=== PATIENT | female | born 1980 | race Caucasian/White ===

== ENCOUNTER 2023-08-11 09:31 | Emergency (ER) | payer OTHER, SELFPAY ==
--- NOTE | 2023-08-11 | ECG_ITS ---
Test Reason : dizziness Blood Pressure : / mmHG Vent. Rate : 073 BPM Atrial Rate : 073 BPM P-R Int : 154 ms QRS Dur : 086 ms QT Int : 396 ms P-R-T Axes : 050 -07 067 degrees QTc Int : 436 ms Normal sinus rhythm Cannot rule out Anterior infarct , age undetermined Abnormal ECG No previous ECGs available Referred By: Generic ED Physician Electronically Signed By:Que Castro
--- NOTE | ~2023-08-11 | MR_ITS ---
EXAMINATION: MR BRAIN WITHOUT CONTRAST CLINICAL INFORMATION: Diplopia. Falls. Rule out posterior circulation stroke. COMPARISON: None. TECHNIQUE: Multiplanar, multisequence imaging of the brain was performed without contrast. FINDINGS: No diffusion abnormalities are identified to suggest an acute or subacute infarct. The ventricles are normal in size. No mass effect or midline shift is seen. No brain parenchymal signal abnormality is noted. No extra-axial fluid collections are seen. The brainstem and cerebellum are normal. The gradient refocused acquisition is normal. The craniovertebral junction, marrow signal, and midline structures are normal. The major intracranial flow voids at the level of the [place] are preserved. The dural venous sinus flow voids are maintained. The mastoid air cells and paranasal sinuses are well aerated. MR/MR head/brain wo con IMPRESSION: No acute intracranial process. Normal MRI of the brain.
[2023-08-11 10:26] VITALS: BP 161/101; PULSE 75; RESP 18; TEMP 36.7; O2SAT 99; BMI 37.7
[2023-08-11 10:45] LABS: MANUAL DIFF FLAG NO
[2023-08-11 10:55] LABS: Basophils Percent Auto 0.4 % (0-2); Eosinophils Absolute Auto 0.1 X10*3/uL (0.0-0.4); Eosinophils Percent Auto 0.7 % (0-4); Hematocrit 41.9 % (37.0-47.0); Imm Gran Abs Auto 0.02 X10*3/uL (0.00-0.03); Imm Gran Pct Auto 0.2 % (0.0-0.4); Lymphocytes Absolute Auto 3.3 X10*3/uL (1.2-4.9); Lymphocytes Percent Auto 39.8 % (20-40); Mean Corpuscular HGB Conc 33.4 g/dl (31.0-35.0); Mean Corpuscular Hemoglobin 31.2 pg (27.0-33.0); Mean Corpuscular Volume 93.3 fL (80.0-98.0); Mean Platelet Volume 8.5 fL (9.4-12.3); Monocytes Absolute Auto 0.6 X10*3/uL (0.1-1.2); Monocytes Percent Auto 6.7 % (2-11); Neutrophils Absolute Auto 4.3 x10*3/uL (2.0-8.3); Neutrophils Percent Auto 52.2 % (45-73); Platelet Count 362 X10*3/uL (160-400); Red Blood Count 4.49 X10*6/uL (4.20-5.50); Red Cell Distribution Width 12.9 % (11.0-16.0); White Blood Count 8.2 X10*3/uL (4.8-10.8)
[2023-08-11 11:17] LABS: Troponin-I High Sensitivity < 2.7 ng/L (<3.5-17.0)
[2023-08-11 11:20] LABS: Anion Gap 12 (12-20); Blood Urea Nitrogen 18 mg/dL (9-16); Calcium 9.4 mg/dL (8.4-10.2); Carbon Dioxide 27 mmol/L (22-29); Chloride 103 mmol/L (96-108); Creatinine Clr Calc Pharmacy 132.2; Estimated Glomerular Filt Rate > 60; Glucose Random 100 mg/dL (60-115); Potassium 4.1 mmol/L (3.3-5.1); Sodium 138 mmol/L (135-145)
--- NOTE | 2023-08-11 12:43 | ED.DIZZY ---
HPI - Dizziness General Chief Complaint: Dizziness Stated Complaint: Lightheaded Dizzy Time Seen by Provider: 08/11/23 12:09 Source: patient Mode of arrival: EMS Limitations: no limitations History of Present Illness HPI Narrative: 43-year-old female with past history significant for bipolar disorder patient is on Depakote Trileptal lisinopril Wellbutrin Prozac she denies any recent changes in medications patient denies any cough or fever. Patient states they were at work today when he started to feel lightheaded currently patient states it still feel dizzy. Patient states they did eat breakfast this morning not since has never had this problem before there has been send family in their biological father at 31. MD elicited complaint: dizziness Related Data Previous Rx's Medication Instructions Recorded cefuroxime axetil 500 mg tablet 500 mg PO BID UTI 7 days #14 tabs 08/11/23 Allergies Allergy/AdvReac Type Severity Reaction Status Date / Time ondansetron [From Zofran] AdvReac Vomiting Verified 08/11/23 14:18 Review of Systems Review of Systems: Review of systems: General: Dizziness Patient denies any fever chills recent illness or falls Musculoskeletal: Denies back pain or body aches or other injuries HEENT: denies headache, runny nose, ear pain Respiratory: denies shortness of breath, cough Cardiovascular: no chest pain or palpitations : denies dysuria, frequency Abdomen: no nausea vomiting denies abdominal pain Extremities: no swelling, no pain Skin: no diaphoresis Yes all other systems are reviewed and are negative [facility] Social History Social History Advance Directives: No Physical Exam Vital Signs: Vital Signs: Last Vital Signs Temp 97 F 08/11/23 14:00 Pulse 76 08/11/23 14:00 Resp 18 08/11/23 14:00 BP 147/87 H 08/11/23 14:00 Pulse Ox 98 08/11/23 14:00 O2 Del Method Room Air 08/11/23 14:00 BMI result Body Mass Index 37.7 Neurological exam: CN II- XII tested. Patient is alert and oriented to person place and time. Patient has no dysphagia or dysarthia, denies good vision in all four vision calles no nystagmus on exam, good strength to upper and lower extremities with normal reflexes to brachioradialis, wrist, patella and achilles. I did try a Somerset-Hallpike and René maneuver patient's symptoms were reproducible and did resolve Negative romberg, good finger to nose and heel to parish. General: Well-appearing well-nourished in no signs of distress HEENT: Normocephalic atraumatic Neck: No signs of JVD, no masses no tenderness or lymphadenopathy Cardiovascular: Regular rate and rhythm Respiratory: Clear to auscultation bilaterally Abdomen: Soft nontender no masses Extremities: Normal pedal pulses no signs of edema Skin: Dry warm no rashes Back: No tenderness full ROM Course Course Course Narrative: Patient reassessed multiple times initially with her at the bedside and the workup was increased for acute stroke and consultation with Dr. Alicea ; I did give the patient some meclizine as well as doing Somerset-Hallpike maneuver. I did add on valproic acid as well as ammonia level ammonia level is slightly elevated but still within normal limits patient's urine did come back positive I did give the patient Rocephin for UTI. 1656 patient negative MRI this could be related to altered medications on her bladder infection but do not have an obvious reason for symptoms I do think it is worthwhile to follow up with her doctor patient is okay with this and will follow up. Medications Administered Discontinued Medications Generic Name Dose Route Start Last Admin Trade Name Freq PRN Reason Stop Dose Admin Aspirin 324 mg 08/11/23 14:11 08/11/23 14:17 Aspirin 81 Mg Tab.Chew PO 08/11/23 14:12 324 mg ONCE ONE Administration Sodium Chloride 1,000 mls @ 999 mls/hr 08/11/23 14:15 08/11/23 15:39 Ns IV 08/11/23 15:15 Infused .Q1H1M DANIEL Infusion Ceftriaxone Sodium 1 gm/ 50 mls @ 100 mls/hr 08/11/23 15:28 08/11/23 16:12 Sodium Chloride IV 08/11/23 15:57 Infused ONCE ONE Infusion Meclizine HCl 25 mg 08/11/23 14:08 08/11/23 14:17 Meclizine Hcl 25 Mg Tablet PO 08/11/23 14:09 25 mg ONCE ONE Administration Medical Decision Making Medical Decision Making MDM Narrative: I will give the patient meclizine fluids and reassess. Differential Diagnosis Differential Diagnoses: The differential diagnosis associated with the presentation includes Posterior circulation stroke anemia electrolyte abnormality BPPV patient is on Depakote this could be elevated ammonia level elevated Depakote level I will send levels Admission/Observation Consideration of admission/observation: Escalation of care including admission/observation considered Consult Healthcare Provider Management of the patient was discussed with: Talent Development Analyst I will discuss the case with Neurology Dr. Alicae who agreed MRI of the brain was warranted. Lab Data MDM Lab Attestation statement: I reviewed the patient's lab results. 08/11/23 10:41 08/11/23 10:41 Labs: Lab Results 08/11/23 08/11/23 08/11/23 Range/Units 10:41 14:34 15:08 WBC 8.2 (4.8-10.8) X10*3/uL RBC 4.49 (4.20-5.50) X10*6/uL Hgb 14.0 (12.0-16.0) g/dl Hct 41.9 (37.0-47.0) % MCV 93.3 (80.0-98.0) fL MCH 31.2 (27.0-33.0) pg MCHC 33.4 (31.0-35.0) g/dl RDW 12.9 (11.0-16.0) % Plt Count 362 (160-400) X10*3/uL MPV 8.5 L (9.4-12.3) fL Immature Gran % (Auto) 0.2 (0.0-0.4) % Neut % (Auto) 52.2 (45-73) % Lymph % (Auto) 39.8 (20-40) % [place] % (Auto) 6.7 (2-11) % Eos % (Auto) 0.7 (0-4) % Baso % (Auto) 0.4 (0-2) % Lymph # (Auto) 3.3 (1.2-4.9) X10*3/uL [place] # (Auto) 0.6 (0.1-1.2) X10*3/uL Eos # (Auto) 0.1 (0.0-0.4) X10*3/uL Baso # (Auto) 0.0 (0.0-0.2) X10*3/uL Abs Immat Gran (auto) 0.02 (0.00-0.03) X10*3/uL Absolute Neuts (auto) 4.3 (2.0-8.3) x10*3/uL Absolute Nucleated RBC 0.000 (0.0-0.012) X10*3/uL Nucleated RBC % (auto) 0.0 (0.0-0.2) /100WBC Sodium 138 (135-145) mmol/L Potassium 4.1 (3.3-5.1) mmol/L Chloride 103 (96-108) mmol/L Carbon Dioxide 27 (22-29) mmol/L Anion Gap 12 (12-20) BUN 18 H (9-16) mg/dL Creatinine 0.76 (0.5-1.4) mg/dL Estim Creat Clear Calc 132.2 Estimated GFR > 60 Random Glucose 100 (60-115) mg/dL Calcium 9.4 (8.4-10.2) mg/dL Ammonia 43 (13-55) umol/L Troponin I High Sens < 2.7 (<3.5-17.0) ng/L Urine Color Urine Appearance Urine pH (5.0-9.0) Ur Specific Drew (1.005-1.025) Urine Protein (Neg-Trace) mg/dL Urine Glucose (UA) (Negative) mg/dL Urine Ketones (Negative) mg/dL Urine Blood (Negative) Urine Nitrite (Negative) Ur Leukocyte Esterase (Negative) Urine RBC (0-2) /HPF Urine WBC (0-5) /HPF Ur Squamous Epith Cells (0-2) /HPF Urine Bacteria (None Seen) Hyaline Casts (0-2) /LPF Valproic Acid 77.6 (50.0-100.0) mcg/mL 08/11/23 Range/Units 15:11 WBC (4.8-10.8) X10*3/uL RBC (4.20-5.50) X10*6/uL Hgb (12.0-16.0) g/dl Hct (37.0-47.0) % MCV (80.0-98.0) fL MCH (27.0-33.0) pg MCHC (31.0-35.0) g/dl RDW (11.0-16.0) % Plt Count (160-400) X10*3/uL MPV (9.4-12.3) fL Immature Gran % (Auto) (0.0-0.4) % Neut % (Auto) (45-73) % Lymph % (Auto) (20-40) % [place] % (Auto) (2-11) % Eos % (Auto) (0-4) % Baso % (Auto) (0-2) % Lymph # (Auto) (1.2-4.9) X10*3/uL [place] # (Auto) (0.1-1.2) X10*3/uL Eos # (Auto) (0.0-0.4) X10*3/uL Baso # (Auto) (0.0-0.2) X10*3/uL Abs Immat Gran (auto) (0.00-0.03) X10*3/uL Absolute Neuts (auto) (2.0-8.3) x10*3/uL Absolute Nucleated RBC (0.0-0.012) X10*3/uL Nucleated RBC % (auto) (0.0-0.2) /100WBC Sodium (135-145) mmol/L Potassium (3.3-5.1) mmol/L Chloride (96-108) mmol/L Carbon Dioxide (22-29) mmol/L Anion Gap (12-20) BUN (9-16) mg/dL Creatinine (0.5-1.4) mg/dL Estim Creat Clear Calc Estimated GFR Random Glucose (60-115) mg/dL Calcium (8.4-10.2) mg/dL Ammonia (13-55) umol/L Troponin I High Sens (<3.5-17.0) ng/L Urine Color Yellow Urine Appearance Clear Urine pH 8.5 (5.0-9.0) Ur Specific Drew 1.015 (1.005-1.025) Urine Protein Negative (Neg-Trace) mg/dL Urine Glucose (UA) Negative (Negative) mg/dL Urine Ketones Negative (Negative) mg/dL Urine Blood Negative (Negative) Urine Nitrite Negative (Negative) Ur Leukocyte Esterase Trace H (Negative) Urine RBC 0-2 (0-2) /HPF Urine WBC 21-50 H (0-5) /HPF Ur Squamous Epith Cells 3-5 (0-2) /HPF Urine Bacteria 3+ (None Seen) Hyaline Casts 0-2 (0-2) /LPF Valproic Acid (50.0-100.0) mcg/mL Independent Interpretation I performed an independent interpretation of an: EKG and Plain X-Ray Interpretation: EKG rate 63 normal sinus rhythm normal intervals no signs of ischemia patient has normal intervals there is no short WA interval or signs of [id number] there is no right bundle-branch pattern in V1 V2 or any signs concerning for Brugada syndrome there is no epsilon wave there is no signs of LVH and QT is not prolonged Radiology Impression Discussion of test interpretation with radiology: I discussed test interpretation with the radiologist Independent Historian Clinical information obtained from an independent historian. History obtained from or confirmed by: Spouse and EMS is now at the bedside she states the dizziness has been going on for some time she has had trouble walking upstairs she has double vision lightheaded confusion has been dropping things and falling upstairs for weeks it comes and goes is more insidious. External Record Review Patient has never been reported this no previous records to review Discharge Plan Discharge Clinical Impression: Vertigo, Urinary tract infection Patient Disposition: Home, Self-Care Instructions: Urinary Tract Infection in Women (DC), Vertigo (DC), Near Syncope (ED) Additional Instructions: You were seen today in the emergency department for I was passing out and having recurrent symptoms of double vision dizziness and tripping. You had a complete stroke workup including MRI labs and x-rays which were all unremarkable. I am going to send home with antibiotics as well as meclizine please call follow up with her doctor. Prescriptions: New cefuroxime axetil 500 mg tablet 500 mg PO BID 7 Days Qty: 14 0RF
[2023-08-11 14:00] VITALS: BP 147/87; PULSE 76; RESP 18; TEMP 36.1; O2SAT 98
--- NOTE | 2023-08-11 14:08 | PC.NURSE ---
md almanza notified pt requesting iv fluids.
[2023-08-11] MEDS: Meclizine HCl 25 MG TABLET PO (14:17)
[2023-08-11] MEDS: Aspirin 81 MG TAB.CHEW 324 MG PO (14:17)
--- NOTE | 2023-08-11 14:30 | PC.NURSE ---
followed up w REPAIR TECHNICIAN therapist and MD lamanza in [facility]- notified passed RN swallow juan manuel
[2023-08-11] MEDS: 0.9 % Sodium Chloride 1,000 ML 999 ML IV (14:37)
[2023-08-11 14:50] LABS: Ammonia 43 umol/L (13-55)
[2023-08-11 15:21] LABS: Appearance Urine Clear; Color Urine Yellow; Glucose Urine UA Negative (Negative); Leukocyte Esterase Urine Trace (Negative); Nitrite Urine Negative (Negative); PH 8.5 (5.0-9.0); Specific Gravity - Urine 1.015 (1.005-1.025); UMIC TRIGGER UACC YES; Urine Blood Negative (Negative); Urine Ketones Negative (Negative); Urine Protein Negative (Neg-Trace)
[2023-08-11 15:23] LABS: Bacteria Urine 3+ (None Seen); Hyaline Casts Urine 0-2 /LPF (0-2); RBC Urine 0-2 /HPF (0-2); UACC Culture Trigger YES; WBC Urine 21-50 /HPF (0-5)
[2023-08-11 15:32] LABS: Valproate 77.6 mcg/mL (50.0-100.0)
[2023-08-11] MEDS: cefTRIAXone sodium 1 GM in 0.9 % Sodium Chloride 50 ML IV (15:39)
--- NOTE | 2023-08-11 15:50 | MHC.SLORD ---
Addendum entered and electronically signed by JEFFREY Kline 08/11/23 15:52: If future concerns arise, please re-refer for TRAVELING CLERK consult. Original Note: Speech Language Pathology Order Status: TRAVELING CLERK consult received. Per MD, order was meant for RN swallow screen and not TRAVELING CLERK consult. Per RN, patient passed RN swallow screen and there is no concerns. TRAVELING CLERK consult to be cancelled.
[2023-08-11 17:50] VITALS: BP 132/63; PULSE 73; RESP 18; TEMP -17.7; TEMP 0; O2SAT 99
== END 2023-08-11 17:52 | disposition home or self-care (01) ==
PROVIDERS: Emergency Provider Student in an Organized Health Care Education/Training Program; PCP Internal Medicine
DX: N39.0 Urinary tract infection, site not specified (principal); R42 Dizziness and giddiness; H53.2 Diplopia; Z91.81 History of falling
CPT/HCPCS: 36415; 70551; 80048; 80164; 81001; 82140; 84484; 85025; 87086; 93005; 96361; 96365; 99284; 99285; J0696

== ENCOUNTER → 2023-08-11 10:34 | Outpatient (BNV) | payer OTHER, SELFPAY | PROVIDERS: Emergency Provider Student in an Organized Health Care Education/Training Program; PCP Internal Medicine; Visit Provider Internal Medicine Cardiovascular Disease | DX: R94.31 Abnormal electrocardiogram [ECG] [EKG] (principal) | CPT/HCPCS: 93010 ==

== ENCOUNTER 2023-10-29 12:44 | Emergency (ER) | payer OTHER, SELFPAY ==
--- NOTE | ~2023-10-29 | XR_ITS ---
EXAMINATION: XR CHEST CLINICAL INFORMATION: Chest pain COMPARISON: None available. TECHNIQUE: 2 views of the chest were obtained. FINDINGS: No significant abnormality is noted involving the heart, lungs, mediastinum, bony thorax or soft tissues. XR/XR chest 2V IMPRESSION: Unremarkable examination.
--- NOTE | 2023-10-29 12:50 | ECG_ITS ---
Test Reason : CHEST PAIN Blood Pressure : / mmHG Vent. Rate : 070 BPM Atrial Rate : 070 BPM P-R Int : 146 ms QRS Dur : 086 ms QT Int : 410 ms P-R-T Axes : 031 -02 -05 degrees QTc Int : 442 ms Normal sinus rhythm Nonspecific ST abnormality Abnormal ECG When compared with ECG of 11-AUG-2023 10:34, Nonspecific T wave abnormality, improved in Lateral leads Referred By: Generic ED Physician Electronically Signed By:FABY SIMON
[2023-10-29 12:59] VITALS: BP 160/92; PULSE 87; RESP 16; TEMP 36.6; O2SAT 96; BMI 39.1
--- NOTE | 2023-10-29 12:59 | ED_ITS ---
HPI - Chest Pain General Chief Complaint: Dizziness Stated Complaint: Chest pain, dizziness Time Seen by Provider: 10/29/23 16:03 Source: patient Mode of arrival: ambulatory Limitations: no limitations History of Present Illness ED Provider: Anika Morley PA-C HPI narrative: Patient is a 43 year old assigned female at with no reported medical history presenting to the emergency department today with right sided chest pain. Patient states that over the last few hours she has had right sided chest pain, worse with deep breaths, that radiates into her right arm. Patient denies any dizziness, lightheadedness, abdominal pain, nausea, vomiting, fever, chills, blurry vision, double vision, loss of vision, difficulty breathing, shortness of breath, back pain, night sweats, pain with urination, increased urinary frequency, increased urinary urgency, blood in her urine or stool, syncope or a near syncopal episode, recent trauma or falls, bowel incontinence, bladder incontinence, or any other complaints at this time. MD complaint: chest pain Pain location: right chest Related Data Previous Rx's ?Medication ?Instructions ?Recorded cefuroxime axetil 500 mg tablet 500 mg PO BID UTI 7 days #14 tabs 08/11/23 Allergies Allergy/AdvReac Type Severity Reaction Status Date / Time ondansetron [From Zofran] AdvReac Vomiting Verified 10/29/23 13:01 Review of Systems 2 Constitutional: Constitutional: Reports no additional constitutional complaints, Denies chills, Denies fever(s) and Denies night sweats Eyes: Eyes: Reports no additional eye complaints, Denies blurry vision, Denies change in vision, Denies diplopia, Denies eye discharge, Denies loss of vision and Denies eye pain Cardiovascular: Cardiovascular: Reports no additional cardiovascular complaints, Reports chest pain, Denies lightheadedness, Denies Loss of Consciousness and Denies dyspnea Respiratory: Respiratory: Reports no additional respiratory complaints and Denies dyspnea Gastrointestinal: Gastrointestinal: Reports no additional gastrointestinal complaints, Denies abdominal pain, Denies melena, Denies hematochezia, Denies change in bowel habits and Denies change in stool character Genitourinary: Genitourinary: Denies hematuria, Denies urinary frequency, Denies dysuria, Denies urinary incontinence, Denies urinary hesitancy and Denies urinary urgency Musculoskeletal: Musculoskeletal: Reports no additional musculoskeletal complaints Neurologic: Denies loss of vision Psychiatric: Psychiatric: Reports no additional psychiatric complaints Endocrine: Endocrine: Reports no additional endocrine complaints Hematologic/Lymphatic: Hematologic/Lymphatic: Reports no additional hematologic/lymphatic complaints Allergic/Immunologic: Allergic/Immunologic: Reports no additional allergic/immunologic complaints PMFSH Past Medical History Attestation statement: The following information was validated with the patient. Source: old records reviewed and nursing notes reviewed Social History Social History Advance Directives: No Advance Directives Information Provided: No Physical Exam 2 Vital Signs: Vital Signs: Last Vital Signs Temp 98.1 F 10/29/23 16:29 Pulse 87 10/29/23 16:29 Resp 18 10/29/23 16:29 BP 160/92 H 10/29/23 16:29 Pulse Ox 96 10/29/23 16:29 O2 Del Method Room Air 10/29/23 16:29 BMI result Body Mass Index 39.1 Const: General: cooperative, no acute distress, alert and awake Nutritional Appearance: well nourished Orientation/consciousness: patient oriented x3 Limitations: no limitations HEENT: Head: Yes normal to inspection and Yes atraumatic Ears: hearing grossly normal bilaterally and external ears normal General nose exam: Normal external nose present, no nasal discharge noted and no epistaxis Face and sinus: Yes normal facial exam, No abrasion and No laceration Mouth: Normal oral and palatal mucosa present, no drooling and no muffled voice Eyes: General: appearance normal, both eyes and all related structures P eriorbital: periorbital findings normal Eyelids: Yes eyelids normal C onjunctivae: conjunctivae normal Pupils: Equal, round and reactive pupils present EOM: EOMs intact bilaterally Neck: Neck: Yes normal visual inspection, Yes full ROM and Yes no lymphadenopathy Chest: Chest palpation & inspection: normal inspection of the chest Resp: Effort & Inspection: normal respiratory effort and able to speak in complete sentences GI: Inspection: Yes normal to inspection Neuro: General: patient oriented x3 and moves all extremities Cranial nerves: Yes Equal, round and reactive pupils present Cognition (Neuro): n ormal cognition Motor exam (neuro): 5/5 motor strength present throughout Sensory Exam: Normal double simultaneous stimulation for sensation C oordination: [id number] test normal Extrem: General: Yes normal to inspection, Yes full ROM and Yes capillary refill normal Psych: Appearance: grossly normal Mental Status: mental status grossly normal Affect: normal affect Attitude: cooperative Thought process: N ormal thought process present Thought content: Normal thought content present Insight: Good insight present (Psych) Course Course Course Narrative: This is an RME performed by Baldev Carreno [employer]ENT: Additional HPI, ROS, PE not included below will be deferred to primary provider. Patient reports onset of symptoms 1.5 hours ago including lightheadedness, dizziness, diffuse anterior chest pain, slightly worse on the right, right shoulder pain, neck pain, right arm tremors. Reports a history of similar symptoms once in the past, it was advised it was vertigo. Denies nausea vomiting abdominal pain, fevers, chills, symptoms Plan: Labs, EKG, urinalysis, CXR Medications Administered Discontinued Medications Generic Name Dose Route Start Last Admin Trade Name Freq PRN Reason Stop Dose Admin Ketorolac Tromethamine 15 mg 10/29/23 16:08 10/29/23 16:25 Ketorolac Tromethamine 15 Mg/Ml Vial IM 10/29/23 16:09 15 mg ONCE ONE Administration Medical Decision Making Medical Decision Making [facility] Narrative: Patient is a 43 year old assigned female at with no reported medical history presenting to the emergency department today with right sided chest pain. Patient's physical exam was unremarkable. Patient's blood work was unremarkable. Patient's urine showed a possible UTI however, the patient is not experiencing any symptoms consistent with UTI, will await culture to treat. Patient's EKG was unremarkable. Patient's chest x-ray showed no acute process. I explained my physical exam findings as well as all test results to the patient. I answered all questions asked by the patient. Patient received IM Toradol. I stressed the importance of the patient taking her medication as prescribed. I stressed the importance of the patient following up with her primary care provider. I stressed the importance of the patient returning to the emergency department immediately if her symptoms were to worsen or if she were to develop any dizziness, shortness of breath, difficulty breathing, chest pain, blurry vision, loss of vision, nausea, vomiting, abdominal pain, fever, chills, back pain, or any other complaints. Patient verbalized agreement and understanding with this treatment plan and discharge. Differential Diagnosis Differential Diagnoses: The differential diagnosis associated with the presentation includes Chest pain Shoulder pain NSTEMI STEMI Costochondritis Admission/Observation Consideration of admission/observation: Escalation of care including admission/observation considered Patient would have been admitted to the hospital had her work up had any findings where hospital admission was appropriate and her clinical presentation warranted hospital admission. Lab Data [facility] Lab Attestation statement: I reviewed the patient's lab results. My interpretation of these results are in the [facility] Rationale portion of this note. 10/29/23 13:29 10/29/23 13:29 Labs: Lab Results 10/29/23 10/29/23 10/29/23 Range/Units 13:29 13:37 15:33 WBC 8.0 (4.8-10.8) X10*3/uL RBC 4.10 L (4.20-5.50) X10*6/uL Hgb 13.1 (12.0-16.0) g/dl Hct 38.5 (37.0-47.0) % MCV 93.9 (80.0-98.0) fL MCH 32.0 (27.0-33.0) pg MCHC 34.0 (31.0-35.0) g/dl RDW 13.1 (11.0-16.0) % Plt Count 399 (160-400) X10*3/uL MPV 8.3 L (9.4-12.3) fL Immature Gran % (Auto) 0.3 (0.0-0.4) % Neut % (Auto) 53.6 (45-73) % Lymph % (Auto) 38.2 (20-40) % [place] % (Auto) 6.0 (2-11) % Eos % (Auto) 1.4 (0-4) % Baso % (Auto) 0.5 (0-2) % Lymph # (Auto) 3.1 (1.2-4.9) X10*3/uL [place] # (Auto) 0.5 (0.1-1.2) X10*3/uL Eos # (Auto) 0.1 (0.0-0.4) X10*3/uL Baso # (Auto) 0.0 (0.0-0.2) X10*3/uL Abs Immat Gran (auto) 0.02 (0.00-0.03) X10*3/uL Absolute Neuts (auto) 4.3 (2.0-8.3) x10*3/uL Absolute Nucleated RBC 0.000 (0.0-0.012) X10*3/uL Nucleated RBC % (auto) 0.0 (0.0-0.2) /100WBC PT 11.7 (11.1-13.3) SEC INR 1.0 (0.9-1.1) Sodium 140 (135-145) mmol/L Potassium 3.9 (3.3-5.1) mmol/L Chloride 104 (96-108) mmol/L Carbon Dioxide 29 (22-29) mmol/L Anion Gap 11 L (12-20) BUN 17 H (9-16) mg/dL Creatinine 0.77 (0.5-1.4) mg/dL Estim Creat Clear Calc 133.2 Estimated GFR > 60 Random Glucose 91 (60-115) mg/dL Calcium 9.4 (8.4-10.2) mg/dL Magnesium 2.3 (1.6-2.6) mg/dL Total Bilirubin 0.2 (0.0-1.0) mg/dL AST 12 (5-31) U/L ALT 15 (0-31) U/L Alkaline Phosphatase 59 (39-117) U/L Troponin I High Sens < 2.7 < 2.7 (<3.5-17.0) ng/L Total Protein 7.5 (6.5-8.0) g/dL Albumin 4.3 (3.5-5.0) g/dL Lipase 19 (8-78) U/L Urine Color Yellow Urine Appearance Cloudy Urine pH 7.5 (5.0-9.0) Ur Specific [place] 1.020 (1.005-1.025) Urine Protein Negative (Neg-Trace) mg/dL Urine Glucose (UA) Negative (Negative) mg/dL Urine Ketones Negative (Negative) mg/dL Urine Blood Small (1+) H (Negative) Urine Nitrite Negative (Negative) Ur Leukocyte Esterase Moderate (2+) H (Negative) Urine RBC 11-20 H (0-2) /HPF Urine WBC 21-50 H (0-5) /HPF Ur Squamous Epith Cells 6-10 (0-2) /HPF Urine Bacteria 1+ (None Seen) Hyaline Casts 0-2 (0-2) /LPF Independent Interpretation I performed an independent interpretation of an: EKG and Plain X-Ray Interpretation: My interpretation is in agreement with the radiologist's impression of this imaging study. - EXAMINATION: XR CHEST CLINICAL INFORMATION: Chest pain COMPARISON: None available. TECHNIQUE: 2 views of the chest were obtained. FINDINGS: No significant abnormality is noted involving the heart, lungs, mediastinum, bony thorax or soft tissues. XR/XR chest 2V IMPRESSION: Unremarkable examination. Dictated By: Hannah Conner MD Signed By: Electronically signed by Hannah Conner MD 10/29/23 1337 - Vent. Rate: 070 BPM Atrial Rate: 070 BPM P-R Int: 146 ms QRS Dur: 086 ms QT Int: 410 ms P-R-T Axes: 031 -02 -05 degrees QTc Int: 442 ms Normal sinus rhythm Nonspecific ST abnormality Abnormal ECG When compared with ECG of 11-AUG-2023 10:34, Nonspecific T wave abnormality, improved in Lateral leads DD/ [id number] Radiology Impression Discussion of test interpretation with radiology: I have reviewed the radiologist's reading. Discharge Plan Discharge Clinical Impression: Atypical chest pain Patient Disposition: Home, Self-Care Instructions: Chest Pain (ED) Additional Instructions: Your work up today was reassuring. Your EKG, labs, and chest x-ray were all negative for any acute process. Follow up with your primary care provider. Return to the emergency department immediately if your symptoms worsen or if you develop any dizziness, shortness of breath, difficulty breathing, chest pain, blurry vision, loss of vision, nausea, vomiting, abdominal pain, fever, chills, back pain, or any other complaints. Prescriptions: No Action cefuroxime axetil 500 mg tablet 500 mg PO BID 7 Days Qty: 14 0RF Referrals: [facility] Family Medicine [Provider Group] (Call to establish and follow up with a primary care provider. If you already have a primary care provider, please follow up with them.) [facility] [Provider Group] [facility] [Provider Group] Stand Alone Forms: Work/School Release Interventions: ED Discharge Assessment Last Done: 10/29/23 16:29 Discharge Date/Time: 10/29/23 16:30 Print Language: Salvadorean
[2023-10-29 13:42] LABS: MANUAL DIFF FLAG NO
[2023-10-29 13:45] LABS: Basophils Percent Auto 0.5 % (0-2); Eosinophils Absolute Auto 0.1 X10*3/uL (0.0-0.4); Eosinophils Percent Auto 1.4 % (0-4); Hematocrit 38.5 % (37.0-47.0); Hemoglobin 13.1 g/dl (12.0-16.0); Imm Gran Abs Auto 0.02 X10*3/uL (0.00-0.03); Imm Gran Pct Auto 0.3 % (0.0-0.4); Lymphocytes Absolute Auto 3.1 X10*3/uL (1.2-4.9); Lymphocytes Percent Auto 38.2 % (20-40); Mean Corpuscular Volume 93.9 fL (80.0-98.0); Mean Platelet Volume 8.3 fL (9.4-12.3); Monocytes Absolute Auto 0.5 X10*3/uL (0.1-1.2); Neutrophils Absolute Auto 4.3 x10*3/uL (2.0-8.3); Neutrophils Percent Auto 53.6 % (45-73); Platelet Count 399 X10*3/uL (160-400); Red Cell Distribution Width 13.1 % (11.0-16.0)
[2023-10-29 13:46] LABS: Appearance Urine Cloudy; Color Urine Yellow; Glucose Urine UA Negative (Negative); Leukocyte Esterase Urine Moderate (2+) (Negative); Nitrite Urine Negative (Negative); PH 7.5 (5.0-9.0); UMIC TRIGGER UACC YES; Urine Blood Small (1+) (Negative); Urine Ketones Negative (Negative); Urine Protein Negative (Neg-Trace)
[2023-10-29 13:48] LABS: Prothrombin Time 11.7 SEC (11.1-13.3)
[2023-10-29 13:53] LABS: Bacteria Urine 1+ (None Seen); Hyaline Casts Urine 0-2 /LPF (0-2); UACC Culture Trigger YES; WBC Urine 21-50 /HPF (0-5)
[2023-10-29 14:09] LABS: Alanine Aminotransferase 15 U/L (0-31); Albumin Level 4.3 g/dL (3.5-5.0); Alkaline Phosphatase 59 U/L (39-117); Anion Gap 11 (12-20); Aspartate Amino Transferase 12 U/L (5-31); Bilirubin Total 0.2 mg/dL (0.0-1.0); Blood Urea Nitrogen 17 mg/dL (9-16); Calcium 9.4 mg/dL (8.4-10.2); Carbon Dioxide 29 mmol/L (22-29); Chloride 104 mmol/L (96-108); Creatinine Clr Calc Pharmacy 133.2; Estimated Glomerular Filt Rate > 60; Glucose Random 91 mg/dL (60-115); Lipase 19 U/L (8-78); Magnesium 2.3 mg/dL (1.6-2.6); Potassium 3.9 mmol/L (3.3-5.1); Sodium 140 mmol/L (135-145); Total Protein 7.5 g/dL (6.5-8.0)
[2023-10-29 14:18] LABS: Troponin-I High Sensitivity < 2.7 ng/L (<3.5-17.0)
[2023-10-29 15:59] LABS: Troponin-I High Sensitivity < 2.7 ng/L (<3.5-17.0)
[2023-10-29] MEDS: Ketorolac Tromethamine 15 MG/ML VIAL IM (16:25)
[2023-10-29 16:29] VITALS: BP 160/92; PULSE 87; RESP 18; TEMP 36.7; O2SAT 96
== END 2023-10-29 16:30 | disposition home or self-care (01) ==
PROVIDERS: Nurse Practitioner Family; Emergency Provider Emergency Medicine
DX: R07.89 Other chest pain (principal); R42 Dizziness and giddiness; Z79.899 Other long term (current) drug therapy
CPT/HCPCS: 36415; 71046; 80053; 81001; 83690; 83735; 84484; 85025; 85610; 87086; 93005; 96372; 99284; J1885

== ENCOUNTER → 2023-10-29 12:50 | Outpatient (BNV) | payer OTHER, SELFPAY | PROVIDERS: Emergency Provider Emergency Medicine; Visit Provider Internal Medicine | DX: R07.9 Chest pain, unspecified (principal); R94.31 Abnormal electrocardiogram [ECG] [EKG] | CPT/HCPCS: 93010 ==

== ENCOUNTER 2024-04-06 09:35 | Emergency (ER) | payer OTHER, SELFPAY ==
--- NOTE | ~2024-04-06 | XR_ITS ---
EXAMINATION: XR CHEST CLINICAL INFORMATION: chest pain COMPARISON: 10/29/2023 TECHNIQUE: AP portable view of the chest was obtained. FINDINGS: The cardiac, hilar, and mediastinal contours are normal. The lungs are clear bilaterally. No effusions or pneumothorax. There is no osseous abnormality. There is no soft tissue abnormality. XR/XR chest 1V IMPRESSION: -Normal chest. Electronically signed by: Daquan Lemos MD 04/06/2024 10:04 AM SYL
[2024-04-06 09:42] VITALS: BP 126/76; BP 142/92; PULSE 67; RESP 20; TEMP 36.4; O2SAT 100; O2SAT 99; BMI 41.3
--- NOTE | 2024-04-06 09:42 | ECG_ITS ---
Test Reason : chest pain Blood Pressure : / mmHG Vent. Rate : 062 BPM Atrial Rate : 062 BPM P-R Int : 150 ms QRS Dur : 084 ms QT Int : 428 ms P-R-T Axes : 000 -24 -28 degrees QTc Int : 434 ms Normal sinus rhythm Normal ECG When compared with ECG of 29-OCT-2023 13:15, No significant change was found Referred By: Cee Huerta Electronically Signed By:CLEMENTE GARRISON MD
[2024-04-06 09:46] LABS: Glucose, Whole Blood 105 mg/dL (60-115)
--- NOTE | 2024-04-06 09:56 | ED.CHESTPAIN ---
HPI - Chest Pain General Chief Complaint: Chest Pain Stated Complaint: CP PER EMS Source: patient Mode of arrival: ambulatory Limitations: no limitations History of Present Illness ED Provider: AUSTIN ALVARADO narrative: 43 yo female with PMH of bipolar and HTN compliant with all medications she presents today with c/o working today then suddenly felt nauseated and sick to her stomach she went to the bathroom and vomited several times. After vomiting she felt chest pain hurts to touch L chest. She denies any recent travel, procedures, hormone use. She has not been sick with URI recently. She has no known CAD. EMS gave nitro and aspirin no relief. She did feel better with IV zofran. No diarrhea or abdominal pain - denies food exposures or sick contacts. MD complaint: chest pain (n/v) Onset (ago): minute(s) (45) Timing of current episode: constant Prior episodes: No Onset: during rest Pain location: left chest Pain radiation: none Severity: moderate Quality: aching Exacerbating factors: palpation and movement Context: recent illness Associated symptoms: nausea and vomiting Treatment prior to arrival: aspirin, nitroglycerin and other Related Data Previous Rx's ?Medication ?Instructions ?Recorded cefuroxime axetil 500 mg tablet 500 mg PO BID UTI 7 days #14 tabs 08/11/23 ondansetron 4 mg disintegrating 4 mg PO Q8H PRN nausea and 04/06/24 tablet vomiting #20 tabs Allergies Allergy/AdvReac Type Severity Reaction Status Date / Time No Known Allergies Allergy Verified 04/06/24 09:46 Review of Systems Review of Systems: Constitutional : No Weight loss, No Fever, No Chills ENT/Mouth : No sore throat, No Rhinorrhea Eyes: No Eye Pain, No Swelling Cardiovascular : pos Chest Pain, no SOB, no Dyspnea on Exertion, No Orthopnea, No Edema, No Palpitations Respiratory : No Cough, No Sputum Gastrointestinal : pos Nausea, pos Vomiting, No Diarrhea, No abdominal Pain, No Hematochezia, No Melena Genitourinary : No Dysuria, No Urinary Frequency Musculoskeletal : No joint pain, No Myalgias, No Joint Swelling Skin : No Skin Lesions, No rash Neuro : No Weakness, No Numbness, No Dizziness, No Headache Psych : No Anxiety/Panic, No Depression All other systems reviewed and are negative PMFSH Past Medical History Attestation statement: The following information was validated with the patient. Source: old records reviewed Medical History Bipolar disorder HTN (hypertension) Social History Social History (Updated 04/06/24 @ 10:01 by Cee Huerta DO) Patient Tobacco Use Status: Tobacco use Unknown Smoked in Last 30 Days: No Use of substances other than those prescribed or required for medical reasons: No Advance Directives: No Advance Directives Information Provided: No Physical Exam Vital Signs: Vital Signs: Last Vital Signs Temp 98.0 F 04/06/24 12:49 Pulse 73 04/06/24 12:49 Resp 15 04/06/24 12:49 BP 103/67 04/06/24 12:49 Pulse Ox 100 04/06/24 12:49 O2 Del Method Room Air 04/06/24 12:49 BMI result Body Mass Index 41.3 Appearance: Alert. Oriented X3. No acute distress. anxious Eyes: Pupils equal, round and reactive to light. ENT: Pharynx normal. Neck: Normal inspection. Neck supple. CVS: Normal heart rate and rhythm. Pulses normal. Chest wall: ttp L anterior chest Respiratory: No respiratory distress. Breath sounds normal. Abdomen: Soft and nontender. Skin: Skin warm and dry. Normal skin color. Normal skin turgor. Extremities: No lower extremity edema. No calf ttp Neuro: Oriented X 3. No motor deficit. No sensory deficit. Medications Administered Discontinued Medications Generic Name Dose Route Start Last Admin Trade Name Freq PRN Reason Stop Dose Admin Ketorolac Tromethamine 15 mg 04/06/24 09:42 04/06/24 09:58 Ketorolac Tromethamine 15 Mg/Ml Vial IVPUSH 04/06/24 09:43 15 mg ONCE ONE Administration Morphine Sulfate 4 mg 04/06/24 09:43 04/06/24 09:59 Morphine Sulfate 4 Mg/Ml Cartridge IVPUSH 04/06/24 09:44 4 mg ONCE ONE Administration Protocol Medical Decision Making Medical Decision Making MDM Narrative: 43 yo female with PMH of bipolar and HTN here with abrupt onset of not feeling well then n/v after vomiting felt very weak and then L sided chest pain - the n/v started first. Her pain is reproduceable she has no risk factors for ACS, VTE or dissection. At this time could be viral syndrome and chest wall pain, has no abdominal pain or diarrhea. I have ordered troponin x 2, CXR, labs, ddimer. IV morphine and toradol ordered for pain Differential Diagnosis Differential Diagnoses: The differential diagnosis associated with the presentation includes viral illness, chest wall pain, atypical chest pain Admission/Observation Consideration of admission/observation: Escalation of care including admission/observation considered work up negative stable for DC at this time VS stable, trop flat x 2, CXR negative ddimer negative Lab Data [facility] Lab Attestation statement: I reviewed the patient's lab results. 04/06/24 10:10 04/06/24 10:10 Labs: Lab Results 04/06/24 04/06/24 04/06/24 Range/Units 09:42 10:10 10:11 WBC 7.1 (4.8-10.8) X10*3/uL RBC 4.14 L (4.20-5.50) X10*6/uL Hgb 13.0 (12.0-16.0) g/dl Hct 37.6 (37.0-47.0) % MCV 90.8 (80.0-98.0) fL MCH 31.4 (27.0-33.0) pg MCHC 34.6 (31.0-35.0) g/dl RDW 13.4 (11.0-16.0) % Plt Count 350 (160-400) X10*3/uL MPV 8.6 L (9.4-12.3) fL Immature Gran % (Auto) 0.1 (0.0-0.4) % Neut % (Auto) 54.0 (45-73) % Lymph % (Auto) 36.4 (20-40) % [place] % (Auto) 8.6 (2-11) % Eos % (Auto) 0.6 (0-4) % Baso % (Auto) 0.3 (0-2) % Lymph # (Auto) 2.6 (1.2-4.9) X10*3/uL [place] # (Auto) 0.6 (0.1-1.2) X10*3/uL Eos # (Auto) 0.0 (0.0-0.4) X10*3/uL Baso # (Auto) 0.0 (0.0-0.2) X10*3/uL Abs Immat Gran (auto) 0.01 (0.00-0.03) X10*3/uL Absolute Neuts (auto) 3.9 (2.0-8.3) x10*3/uL Absolute Nucleated RBC 0.000 (0.0-0.012) X10*3/uL Nucleated RBC % (auto) 0.0 (0.0-0.2) /100WBC D-Dimer High Sensitivty < 150 NG/ML Sodium 138 (135-145) mmol/L Potassium 3.6 (3.3-5.1) mmol/L Chloride 105 (96-108) mmol/L Carbon Dioxide 23 (22-29) mmol/L Anion Gap 14 (12-20) BUN 17 H (9-16) mg/dL Creatinine 0.71 (0.5-1.4) mg/dL Estim Creat Clear Calc 139.7 Estimated GFR > 60 POC Glucose 105 (60-115) mg/dL Random Glucose 118 H (60-115) mg/dL Calcium 9.8 (8.4-10.2) mg/dL Magnesium 2.2 (1.6-2.6) mg/dL Total Bilirubin 0.2 (0.0-1.0) mg/dL Direct Bilirubin < 0.2 (0.0-0.5) mg/dL AST 14 (5-31) U/L ALT 21 (0-31) U/L Alkaline Phosphatase 52 (39-117) U/L Troponin I High Sens < 2.7 (<3.5-17.0) ng/L B-Natriuretic Peptide 34 (<100) pg/mL Total Protein 7.1 (6.5-8.0) g/dL Albumin 4.2 (3.5-5.0) g/dL Lipase 14 (8-78) U/L 04/06/24 Range/Units 12:59 WBC (4.8-10.8) X10*3/uL RBC (4.20-5.50) X10*6/uL Hgb (12.0-16.0) g/dl Hct (37.0-47.0) % MCV (80.0-98.0) fL MCH (27.0-33.0) pg MCHC (31.0-35.0) g/dl RDW (11.0-16.0) % Plt Count (160-400) X10*3/uL MPV (9.4-12.3) fL Immature Gran % (Auto) (0.0-0.4) % Neut % (Auto) (45-73) % Lymph % (Auto) (20-40) % [place] % (Auto) (2-11) % Eos % (Auto) (0-4) % Baso % (Auto) (0-2) % Lymph # (Auto) (1.2-4.9) X10*3/uL [place] # (Auto) (0.1-1.2) X10*3/uL Eos # (Auto) (0.0-0.4) X10*3/uL Baso # (Auto) (0.0-0.2) X10*3/uL Abs Immat Gran (auto) (0.00-0.03) X10*3/uL Absolute Neuts (auto) (2.0-8.3) x10*3/uL Absolute Nucleated RBC (0.0-0.012) X10*3/uL Nucleated RBC % (auto) (0.0-0.2) /100WBC D-Dimer High Sensitivty NG/ML Sodium (135-145) mmol/L Potassium (3.3-5.1) mmol/L Chloride (96-108) mmol/L Carbon Dioxide (22-29) mmol/L Anion Gap (12-20) BUN (9-16) mg/dL Creatinine (0.5-1.4) mg/dL Estim Creat Clear Calc Estimated GFR POC Glucose (60-115) mg/dL Random Glucose (60-115) mg/dL Calcium (8.4-10.2) mg/dL Magnesium (1.6-2.6) mg/dL Total Bilirubin (0.0-1.0) mg/dL Direct Bilirubin (0.0-0.5) mg/dL AST (5-31) U/L ALT (0-31) U/L Alkaline Phosphatase (39-117) U/L Troponin I High Sens < 2.7 (<3.5-17.0) ng/L B-Natriuretic Peptide (<100) pg/mL Total Protein (6.5-8.0) g/dL Albumin (3.5-5.0) g/dL Lipase (8-78) U/L Independent Interpretation I performed an independent interpretation of an: EKG and Plain X-Ray (normal ) Interpretation: Rate: 62 Rhythm: NSR [place]: left Normal P waves. Normal JAZIEL. Normal QRS complex. ST T wave : inverted t waves III aVF qTC:434 prior studies: no acute ischemia The study has been interpreted contemporaneously by me. . Radiology Impression Discussion of test interpretation with radiology: I have reviewed the radiologist's reading. Prescription Management I considered prescription management with: Other Discharge Plan Discharge Clinical Impression: Atypical chest pain Nausea & vomiting Qualifiers: Vomiting type: unspecified Qualified Code(s): R11.2 - Nausea with vomiting, unspecified Patient Disposition: Home, Self-Care Instructions: Chest Pain (ED), Acute Nausea and Vomiting (ED) Additional Instructions: labs normal troponin x 2 chest xray negative EKG reassuring blood clot test negative rest and stay hydrated return for any worsening symptoms or concerns follow up with your doctor Prescriptions: New ondansetron 4 mg tablet,disintegrating 4 mg PO Q8H PRN (Reason: nausea and vomiting) Qty: 20 0RF No Action cefuroxime axetil 500 mg tablet 500 mg PO BID 7 Days Qty: 14 0RF Stand Alone Forms: Work/School Release Print Language: Guamanian
[2024-04-06] MEDS: Ketorolac Tromethamine 15 MG/ML VIAL IVPUSH (09:58)
[2024-04-06] MEDS: Morphine Sulfate 4 MG/ML CARTRIDGE IVPUSH (09:59)
--- NOTE | 2024-04-06 10:03 | PC.NURSE ---
pt comes to ED from work at [employer] She was there when she had sudden onset left sided chest pain 9/10. 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 At work pt went into the bathroom and vomited. EMS gave 4mg IVP zofran, 324 ASA, and 2x sublingual nitro. Pt now denies nausea and is not vomiting but still has 9/10 chest pain. It does not radiate. NSR on bedside tele. 22g IV placed by EMS. torodol and morphine given per orders. EKG and CXR done. Pt states she has a hx of bipolar disorder and htn. She takes medications for both without changes for at least 6 months. She has experienced chest pain before but not to this severity. resp even, unlabored, LSC, no SOB.
[2024-04-06 10:15] LABS: MANUAL DIFF FLAG NO
[2024-04-06 10:18] LABS: Basophils Percent Auto 0.3 % (0-2); Eosinophils Percent Auto 0.6 % (0-4); Hematocrit 37.6 % (37.0-47.0); Imm Gran Abs Auto 0.01 X10*3/uL (0.00-0.03); Imm Gran Pct Auto 0.1 % (0.0-0.4); Lymphocytes Absolute Auto 2.6 X10*3/uL (1.2-4.9); Lymphocytes Percent Auto 36.4 % (20-40); Mean Corpuscular HGB Conc 34.6 g/dl (31.0-35.0); Mean Corpuscular Hemoglobin 31.4 pg (27.0-33.0); Mean Corpuscular Volume 90.8 fL (80.0-98.0); Mean Platelet Volume 8.6 fL (9.4-12.3); Monocytes Absolute Auto 0.6 X10*3/uL (0.1-1.2); Monocytes Percent Auto 8.6 % (2-11); Neutrophils Absolute Auto 3.9 x10*3/uL (2.0-8.3); Platelet Count 350 X10*3/uL (160-400); Red Blood Count 4.14 X10*6/uL (4.20-5.50); Red Cell Distribution Width 13.4 % (11.0-16.0); White Blood Count 7.1 X10*3/uL (4.8-10.8)
[2024-04-06 10:31] LABS: D Dimer High Sensitivity < 150 NG/ML
[2024-04-06 10:32] LABS: Alanine Aminotransferase 21 U/L (0-31); Albumin Level 4.2 g/dL (3.5-5.0); Alkaline Phosphatase 52 U/L (39-117); Anion Gap 14 (12-20); Aspartate Amino Transferase 14 U/L (5-31); Bilirubin Direct < 0.2 mg/dL (0.0-0.5); Bilirubin Total 0.2 mg/dL (0.0-1.0); Blood Urea Nitrogen 17 mg/dL (9-16); Calcium 9.8 mg/dL (8.4-10.2); Carbon Dioxide 23 mmol/L (22-29); Chloride 105 mmol/L (96-108); Creatinine Clr Calc Pharmacy 139.7; Estimated Glomerular Filt Rate > 60; Glucose Random 118 mg/dL (60-115); Lipase 14 U/L (8-78); Magnesium 2.2 mg/dL (1.6-2.6); Potassium 3.6 mmol/L (3.3-5.1); Sodium 138 mmol/L (135-145); Total Protein 7.1 g/dL (6.5-8.0)
[2024-04-06 10:40] LABS: B Type Natriuretic Peptide 34 pg/mL (<100)
[2024-04-06 10:44] LABS: Troponin-I High Sensitivity < 2.7 ng/L (<3.5-17.0)
[2024-04-06 12:49] VITALS: BP 103/67; PULSE 73; RESP 15; TEMP 36.7; O2SAT 100
--- NOTE | 2024-04-06 12:49 | PC.NURSE ---
pt reported that she also has right ankle soreness and right leg pain. she has a small wound, not open that is dry. no redness or drainage. Provider notified.
[2024-04-06 13:33] LABS: Troponin-I High Sensitivity < 2.7 ng/L (<3.5-17.0)
[2024-04-06 13:49] VITALS: BP 103/67; PULSE 73; RESP 15; TEMP 36.7; O2SAT 100
== END 2024-04-06 13:54 | disposition home or self-care (01) ==
PROVIDERS: Emergency Provider Emergency Medicine
DX: R07.89 Other chest pain (principal); R11.2 Nausea with vomiting, unspecified; I10 Essential (primary) hypertension; Z79.899 Other long term (current) drug therapy
CPT/HCPCS: 36415; 71045; 80048; 80076; 82947; 83690; 83735; 83880; 84484; 85025; 85379; 93005; 96374; 96375; 99284; 99285; J1885; J2270

== ENCOUNTER → 2024-04-06 09:42 | Outpatient (BNV) | payer OTHER, SELFPAY | PROVIDERS: Emergency Provider Emergency Medicine; Visit Provider Internal Medicine Cardiovascular Disease | DX: R07.9 Chest pain, unspecified (principal) | CPT/HCPCS: 93010 ==

== ENCOUNTER → 2024-04-06 09:42 | Outpatient (BNV) | payer OTHER, SELFPAY | PROVIDERS: Emergency Provider Emergency Medicine; Visit Provider Radiology Diagnostic Radiology | DX: R07.9 Chest pain, unspecified (principal) | CPT/HCPCS: 71045 ==

== ENCOUNTER 2024-04-10 15:02 | Emergency (ER) | payer OTHER, SELFPAY ==
--- NOTE | ~2024-04-10 | XR_ITS ---
EXAMINATION: XR CHEST CLINICAL INFORMATION: chest pain COMPARISON: Chest x-ray April 06, 2024 TECHNIQUE: 2 views of the chest were obtained. FINDINGS: No significant abnormality is noted involving the heart, lungs, mediastinum, bony thorax or soft tissues. XR/XR chest 2V IMPRESSION: Unremarkable examination. Electronically signed by: Josue Hardin MD 04/10/2024 06:20 PM [facility]
--- NOTE | ~2024-04-10 | CT_ITS ---
EXAMINATION: CT ANGIOGRAM CHEST CLINICAL INFORMATION: Pain. Concern for pulmonary embolism. COMPARISON: None available. TECHNIQUE: Multiple axial images were obtained through the chest after the administration of 65 mL of Omnipaque 350 intravenous contrast. Extensive vascular post-processing including two-dimensional and three-dimensional reformatted images were created and reviewed on an independent workstation. This CT examination was performed using dose optimization techniques as appropriate, variously including the following: *Automated exposure control *Adjustment of mA and/or kV according to patient size (this includes techniques or standardized protocols for targeted exams where dose is matched to indication/reason for exam; i.e. extremities or head) *Use of iterative reconstruction technique DLP: 373 mGy-cm FINDINGS: QUALITY OF STUDY/CONTRAST BOLUS: Satisfactory. PULMONARY ARTERIES: No pulmonary emboli. THORACIC AORTA: No aneurysm. LUNG: No focal consolidation, nodules or masses. PLEURA: No pleural effusion or pneumothorax. MEDIASTINUM: Normal heart size. No pericardial effusion. No hilar or mediastinal lymphadenopathy. No evidence of septal bowing or right heart strain. CORONARY ARTERY CALCIFICATION: None visualized on this study. CHEST WALL/AXILLA: No axillary or internal mammary lymphadenopathy. OSSEOUS STRUCTURES: No acute or suspicious osseous abnormality. UPPER ABDOMEN: Unremarkable. No reflux of contrast into the hepatic veins to suggest elevated right heart pressures. CT/CT angio chest PE protocol IMPRESSION: No evidence of pulmonary emboli. Fleischner guidelines were followed. . Electronically signed by: Pa Odell MD 04/11/2024 01:06 AM [facility]
--- NOTE | 2024-04-10 15:04 | ECG_ITS ---
Test Reason : chest pain Blood Pressure : / mmHG Vent. Rate : 080 BPM Atrial Rate : 080 BPM P-R Int : 148 ms QRS Dur : 090 ms QT Int : 378 ms P-R-T Axes : 050 -08 -02 degrees QTc Int : 435 ms Normal sinus rhythm Poor R wave progression in anterior leads, Cannot rule out Anterior infarct , age undetermined ; can be related to body habitus/lead placement Abnormal ECG When compared with ECG of 06-APR-2024 09:44, Non-specific change in ST segment in Lateral leads Referred By: Aniak Morley Electronically Signed By:FABY SIMON
[2024-04-10 15:17] VITALS: BP 137/86; PULSE 85; RESP 16; TEMP 37.1; O2SAT 98; BMI 40.2
[2024-04-10 15:32] LABS: MANUAL DIFF FLAG NO
[2024-04-10 15:35] LABS: Basophils Percent Auto 0.3 % (0-2); Eosinophils Percent Auto 0.5 % (0-4); Hemoglobin 13.5 g/dl (12.0-16.0); Imm Gran Abs Auto 0.02 X10*3/uL (0.00-0.03); Imm Gran Pct Auto 0.2 % (0.0-0.4); Lymphocytes Absolute Auto 2.9 X10*3/uL (1.2-4.9); Lymphocytes Percent Auto 33.6 % (20-40); Mean Corpuscular HGB Conc 33.8 g/dl (31.0-35.0); Mean Corpuscular Hemoglobin 31.3 pg (27.0-33.0); Mean Corpuscular Volume 92.8 fL (80.0-98.0); Mean Platelet Volume 8.6 fL (9.4-12.3); Monocytes Absolute Auto 0.6 X10*3/uL (0.1-1.2); Monocytes Percent Auto 6.4 % (2-11); Neutrophils Absolute Auto 5.1 x10*3/uL (2.0-8.3); Platelet Count 398 X10*3/uL (160-400); Red Blood Count 4.31 X10*6/uL (4.20-5.50); Red Cell Distribution Width 13.5 % (11.0-16.0); White Blood Count 8.6 X10*3/uL (4.8-10.8)
--- NOTE | 2024-04-10 15:54 | ED.CHESTPAIN ---
HPI - Chest Pain General Chief Complaint: Chest Pain Stated Complaint: Chest pain Time Seen by Provider: 04/10/24 21:14 History of Present Illness ED Provider: Evelin ALVARADO narrative: 43yo female presenting for chest pain. Pt states she has been experiencing months of intermittent chest pain that has been getting gradually worse. She describes it as intermittent substernal chest pain that shoots to the left side of her chest. she states it is his pain can occur whether she is at rest or active. She also endorses nausea without vomiting. She denies recent travel, hormonal therapy, shortness of breath, fevers, chills, cough. Patient has talked to her outpatient providers about this who do not seem significantly concerned. Patient was seen here 4 days ago with similar complaints with a negative workup. Related Data Previous Rx's ?Medication ?Instructions ?Recorded cefuroxime axetil 500 mg tablet 500 mg PO BID UTI 7 days #14 tabs 08/11/23 ondansetron 4 mg disintegrating 4 mg PO Q8H PRN nausea and 04/06/24 tablet vomiting #20 tabs Allergies Allergy/AdvReac Type Severity Reaction Status Date / Time No Known Allergies Allergy Verified 04/10/24 15:20 Review of Systems Review of Systems: Patient endorses chest pain and nausea Yes all other systems are reviewed and are negative [facility] Past Medical History Medical History Bipolar disorder HTN (hypertension) Social History Social History (Updated 04/06/24 @ 10:01 by Cee Huerta DO) Patient Tobacco Use Status: Tobacco use Unknown Smoked in Last 30 Days: No Advance Directives: No Advance Directives Information Provided: No Patient : No Physical Exam Vital Signs: Vital Signs: Last Vital Signs Temp 98.2 F 04/10/24 23:51 Pulse 67 04/10/24 23:51 Resp 20 04/10/24 23:51 BP 122/46 L 04/10/24 23:51 Pulse Ox 97 04/10/24 23:51 O2 Del Method Room Air 04/10/24 23:51 BMI result Body Mass Index 40.2 well appearing in NAD, lungs ctab w/ unlabored breathing, ns1s2 rrr, chest wall stable and nontender to palpation, abd soft nontender nondistended Course Course Course Narrative: RME performed by Anika Morley PA-C. Patient is a 43 year old assigned female at presenting to the emergency department with chest pain. Detailed physical exam and review of systems are deferred to the topstitcher lockstitch. EKG, labs, imaging, and swabs ordered. Patient placed back in the waiting room pending room availability and results. Medications Administered Discontinued Medications Generic Name Dose Route Start Last Admin Trade Name Paulette PRN Reason Stop Dose Admin Iohexol 65 ml 04/10/24 23:42 04/10/24 23:43 Iohexol 350 Mg/Ml 100 Ml Infus..Btl IV 04/10/24 23:43 65 ml ONCE ONE Administration Ketorolac Tromethamine 15 mg 04/10/24 23:16 04/10/24 23:40 Ketorolac Tromethamine 15 Mg/Ml Vial IVPUSH 04/10/24 23:17 15 mg ONCE ONE Administration Medical Decision Making Medical Decision Making MDM Narrative: 43yo female presenting for chest pain. I am concerned for the following; gerd, pleuritis, costochondritis, atypical chest pain - lower suspicion for ACS/angina, PE, AAA - I reviewed patient's EKG and do not appreciate any signs of ischemia - labs notable for stable H&H, no white count, negative dimer, negative troponin x2, electrolytes within normal limits, negative upreg - given repeat presentation I ordered a CTA PE which was negative for pulmonary emboli. I did not appreciate any significant pulmonary abnormalities or dissection and the Radiology impression was negative for acute findings - I explained the patient I do not think that she is experiencing a life-threatening cardiopulmonary problem. I instructed to follow up with her PCP and gave her clear return precautions. Patient is agreeable with discharge plan. Lab Data 04/10/24 15:29 04/10/24 15:29 Labs: Lab Results 04/10/24 04/10/24 04/10/24 Range/Units 15:29 16:22 21:04 WBC 8.6 (4.8-10.8) X10*3/uL RBC 4.31 (4.20-5.50) X10*6/uL Hgb 13.5 (12.0-16.0) g/dl Hct 40.0 (37.0-47.0) % MCV 92.8 (80.0-98.0) fL MCH 31.3 (27.0-33.0) pg MCHC 33.8 (31.0-35.0) g/dl RDW 13.5 (11.0-16.0) % Plt Count 398 (160-400) X10*3/uL MPV 8.6 L (9.4-12.3) fL Immature Gran % (Auto) 0.2 (0.0-0.4) % Neut % (Auto) 59.0 (45-73) % Lymph % (Auto) 33.6 (20-40) % [place] % (Auto) 6.4 (2-11) % Eos % (Auto) 0.5 (0-4) % Baso % (Auto) 0.3 (0-2) % Lymph # (Auto) 2.9 (1.2-4.9) X10*3/uL [place] # (Auto) 0.6 (0.1-1.2) X10*3/uL Eos # (Auto) 0.0 (0.0-0.4) X10*3/uL Baso # (Auto) 0.0 (0.0-0.2) X10*3/uL Abs Immat Gran (auto) 0.02 (0.00-0.03) X10*3/uL Absolute Neuts (auto) 5.1 (2.0-8.3) x10*3/uL Absolute Nucleated RBC 0.000 (0.0-0.012) X10*3/uL Nucleated RBC % (auto) 0.0 (0.0-0.2) /100WBC D-Dimer High Sensitivty NG/ML Sodium 141 (135-145) mmol/L Potassium 4.3 (3.3-5.1) mmol/L Chloride 106 (96-108) mmol/L Carbon Dioxide 24 (22-29) mmol/L Anion Gap 15 (12-20) BUN 15 (9-16) mg/dL Creatinine 0.81 (0.5-1.4) mg/dL Estim Creat Clear Calc 120.4 Estimated GFR > 60 Random Glucose 103 (60-115) mg/dL Calcium 9.6 (8.4-10.2) mg/dL Total Bilirubin 0.2 (0.0-1.0) mg/dL AST 15 (5-31) U/L ALT 21 (0-31) U/L Alkaline Phosphatase 63 (39-117) U/L Troponin I High Sens < 2.7 < 2.7 (<3.5-17.0) ng/L Total Protein 7.3 (6.5-8.0) g/dL Albumin 4.3 (3.5-5.0) g/dL Urine Test (NEGATIVE) Influenza Type A (PCR) NEGATIVE (Negative) Influenza Type B (PCR) NEGATIVE (Negative) RSV RNA Qual (PCR) NEGATIVE (Negative) SARS-CoV-2 RNA (RT-PCR) NEGATIVE (Negative) 04/10/24 04/10/24 Range/Units 21:38 22:51 WBC (4.8-10.8) X10*3/uL RBC (4.20-5.50) X10*6/uL Hgb (12.0-16.0) g/dl Hct (37.0-47.0) % MCV (80.0-98.0) fL MCH (27.0-33.0) pg MCHC (31.0-35.0) g/dl RDW (11.0-16.0) % Plt Count (160-400) X10*3/uL MPV (9.4-12.3) fL Immature Gran % (Auto) (0.0-0.4) % Neut % (Auto) (45-73) % Lymph % (Auto) (20-40) % [place] % (Auto) (2-11) % Eos % (Auto) (0-4) % Baso % (Auto) (0-2) % Lymph # (Auto) (1.2-4.9) X10*3/uL [place] # (Auto) (0.1-1.2) X10*3/uL Eos # (Auto) (0.0-0.4) X10*3/uL Baso # (Auto) (0.0-0.2) X10*3/uL Abs Immat Gran (auto) (0.00-0.03) X10*3/uL Absolute Neuts (auto) (2.0-8.3) x10*3/uL Absolute Nucleated RBC (0.0-0.012) X10*3/uL Nucleated RBC % (auto) (0.0-0.2) /100WBC D-Dimer High Sensitivty < 150 NG/ML Sodium (135-145) mmol/L Potassium (3.3-5.1) mmol/L Chloride (96-108) mmol/L Carbon Dioxide (22-29) mmol/L Anion Gap (12-20) BUN (9-16) mg/dL Creatinine (0.5-1.4) mg/dL Estim Creat Clear Calc Estimated GFR Random Glucose (60-115) mg/dL Calcium (8.4-10.2) mg/dL Total Bilirubin (0.0-1.0) mg/dL AST (5-31) U/L ALT (0-31) U/L Alkaline Phosphatase (39-117) U/L Troponin I High Sens (<3.5-17.0) ng/L Total Protein (6.5-8.0) g/dL Albumin (3.5-5.0) g/dL Urine Test NEGATIVE (NEGATIVE) Influenza Type A (PCR) (Negative) Influenza Type B (PCR) (Negative) RSV RNA Qual (PCR) (Negative) SARS-CoV-2 RNA (RT-PCR) (Negative) Discharge Plan Discharge Clinical Impression: Atypical chest pain Patient Disposition: Home, Self-Care Additional Instructions: Please follow up with the primary care provider in the next 24-48 hours for reassessment Prescriptions: No Action cefuroxime axetil 500 mg tablet 500 mg PO BID 7 Days Qty: 14 0RF ondansetron 4 mg tablet,disintegrating 4 mg PO Q8H PRN (Reason: nausea and vomiting) Qty: 20 0RF Print Language: Cymraes
[2024-04-10 15:59] LABS: Alanine Aminotransferase 21 U/L (0-31); Albumin Level 4.3 g/dL (3.5-5.0); Alkaline Phosphatase 63 U/L (39-117); Anion Gap 15 (12-20); Aspartate Amino Transferase 15 U/L (5-31); Bilirubin Total 0.2 mg/dL (0.0-1.0); Blood Urea Nitrogen 15 mg/dL (9-16); Calcium 9.6 mg/dL (8.4-10.2); Carbon Dioxide 24 mmol/L (22-29); Chloride 106 mmol/L (96-108); Creatinine Clr Calc Pharmacy 120.4; Estimated Glomerular Filt Rate > 60; Glucose Random 103 mg/dL (60-115); Potassium 4.3 mmol/L (3.3-5.1); Sodium 141 mmol/L (135-145); Total Protein 7.3 g/dL (6.5-8.0)
[2024-04-10 16:07] LABS: Troponin-I High Sensitivity < 2.7 ng/L (<3.5-17.0)
[2024-04-10 17:04] LABS: Influenza A PCR NEGATIVE (Negative); Influenza B PCR NEGATIVE (Negative); Resp Syncy Virus RNA Qual PCR NEGATIVE (Negative); SARS COV2 PCR INHOUSE NEGATIVE (Negative)
[2024-04-10 19:17] VITALS: BP 145/85; PULSE 79; RESP 20; TEMP 36.6; O2SAT 100
[2024-04-10 21:28] LABS: Troponin-I High Sensitivity < 2.7 ng/L (<3.5-17.0)
[2024-04-10 22:00] LABS: D Dimer High Sensitivity < 150 NG/ML
[2024-04-10 22:32] VITALS: BP 136/77; PULSE 67; RESP 16; TEMP 36.6; O2SAT 98
[2024-04-10 22:58] LABS: UPreg QC Valid YES; Urine Pregnancy NEGATIVE (NEGATIVE)
--- NOTE | 2024-04-10 23:05 | PC.NURSE ---
pt awaiting CTA at this time, call martínez within reach
[2024-04-10] MEDS: Ketorolac Tromethamine 15 MG/ML VIAL IVPUSH (23:40)
[2024-04-10] MEDS: iohexoL 350 MG/ML 100 ML INFUS..BTL 65 ML IV (23:43)
[2024-04-10 23:51] VITALS: BP 122/46; PULSE 67; RESP 20; TEMP 36.8; O2SAT 97
[2024-04-11 01:56] VITALS: BP 127/77; PULSE 66; RESP 18; TEMP 37.2; O2SAT 96
== END 2024-04-11 01:59 | disposition home or self-care (01) ==
PROVIDERS: Physician Assistant Medical; Emergency Provider Student in an Organized Health Care Education/Training Program
DX: R07.89 Other chest pain (principal); I10 Essential (primary) hypertension; Z03.818 Encounter for observation for suspected exposure to other biological agents ruled out
CPT/HCPCS: 0241U; 36415; 71046; 71275; 80053; 81025; 84484; 85025; 85379; 93005; 96374; 99284; 99285; J1885; Q9967

== ENCOUNTER → 2024-04-10 15:04 | Outpatient (BNV) | payer OTHER, SELFPAY | PROVIDERS: Emergency Provider Student in an Organized Health Care Education/Training Program; Visit Provider Internal Medicine | DX: R07.9 Chest pain, unspecified (principal); R94.31 Abnormal electrocardiogram [ECG] [EKG] | CPT/HCPCS: 93010 ==

== ENCOUNTER 2024-09-24 19:12 | Emergency (ER) | payer OTHER, SELFPAY ==
--- NOTE | 2024-09-24 19:14 | ECG_ITS ---
Test Reason : CP Blood Pressure : */* mmHG Vent. Rate : 70 BPM Atrial Rate : 70 BPM P-R Int : 162 ms QRS Dur : 84 ms QT Int : 432 ms P-R-T Axes : 39 -10 -33 degrees QTcB Int : 466 ms Normal sinus rhythm Minimal voltage criteria for LVH, may be normal variant ( R in aVL ) Nonspecific ST and T wave abnormality Abnormal ECG When compared with ECG of 10-Apr-2024 15:04, Inverted T waves have replaced nonspecific T wave abnormality in Inferior leads Referred By: Anika Morley Electronically Signed By: CLEMENTE GARRISON MD
[2024-09-24 19:26] VITALS: BP 133/68; PULSE 70; RESP 16; TEMP 36.6; O2SAT 97; BMI 45.2
--- NOTE | 2024-09-24 19:26 | ED.GENADULT ---
HPI - General Adult General Chief complaint: Chest Pain Stated complaint: chest pain Time Seen by Provider: 09/24/24 21:22 Source: patient Mode of arrival: ambulatory Limitations: no limitations History of Present Illness ED Provider: HPI narrative: Patient's history of bipolar disorder anxiety no known coronary artery disease comes here for chest pain midsternum started does prior to arrival pain gets worse on movements and palpation no shortness a breath no history of coronary artery disease Related Data Previous Rx's ?Medication ?Instructions ?Recorded cefuroxime axetil 500 mg tablet 500 mg PO BID UTI 7 days #14 tabs 08/11/23 ondansetron 4 mg disintegrating 4 mg PO Q8H PRN nausea and 04/06/24 tablet vomiting #20 tabs ibuprofen 600 mg tablet 600 mg PO Q6H PRN fever or pain 09/24/24 #30 tabs Allergies Allergy/AdvReac Type Severity Reaction Status Date / Time No Known Allergies Allergy Verified 09/24/24 19:27 Review of Systems Review of Systems: Yes all other systems are reviewed and are negative [facility] Past Medical History Medical History Bipolar disorder HTN (hypertension) Social History Social History Patient Tobacco Use Status: Tobacco use Unknown Smoked in Last 30 Days: No Use of substances other than those prescribed or required for medical reasons: No Advance Directives: No Advance Directives Information Provided: No Do you have a plan to hurt others: No Plan Patient : No Physical Exam ED Vital Signs: Vital Signs - 24 hr 09/24/24 19:26 09/24/24 22:12 Temperature 97.9 F 98.6 F Pulse Rate 70 64 Respiratory Rate 16 16 Blood Pressure 133/68 134/84 Pulse Oximetry 97 97 Oxygen Delivery Method Room Air Room Air BMI result Body Mass Index 45.2 Appearance: Alert. Oriented X3. No acute distress. Eyes: PERRLA, No Nystagmus ENT: Pharynx normal. Oral Mucosa moist Neck: Normal inspection. Neck supple. CVS: Normal heart rate and rhythm. Pulses normal. Respiratory: No respiratory distress. Equal air entry bilateral, no wheezing/rales/rhonchi Abdomen: Soft and nontender. Bowel sounds are present, no mass palpable, no CVA tenderness Skin: Skin warm and dry. Normal skin color. Normal skin turgor. Extremities: No lower extremity edema. No calf tenderness Neuro: Oriented X 3. No motor deficit. No sensory deficit.No cerebellar signs , cranial nerves II-XII intact Course Course Course Narrative: RME performed by Anika Morley PA-C. Patient is a 44 year old assigned female at presenting to the emergency department with chest pain. Patient states that she was sitting, watching a horror movie, when she began to have chest pain. Detailed physical exam and review of systems are deferred to the plastic surgery specialist. EKG, labs, imaging, and swabs ordered. Patient placed back in the waiting room pending room availability and results. Medications Administered Discontinued Medications Generic Name Dose Route Start Last Admin Trade Name Freq PRN Reason Stop Dose Admin Ibuprofen 600 mg 09/24/24 21:59 09/24/24 22:08 Ibuprofen 600 Mg Tablet PO 09/24/24 22:00 600 mg ONCE ONE Administration Medical Decision Making Medical Decision Making [facility] Narrative: Patient has atypical chest pain cardiac enzymes negative EKG without any ischemic change heart score of 0 will discharge patient home Lab Data [facility] Lab Attestation statement: I reviewed the patient's lab results. 09/24/24 20:06 09/24/24 20:06 Labs: Lab Results 09/24/24 Range/Units 20:06 WBC 9.9 (4.8-10.8) X10*3/uL RBC 3.95 L (4.20-5.50) X10*6/uL Hgb 11.7 L (12.0-16.0) g/dl Hct 35.7 L (37.0-47.0) % MCV 90.4 (80.0-98.0) fL MCH 29.6 (27.0-33.0) pg MCHC 32.8 (31.0-35.0) g/dl RDW 13.2 (11.0-16.0) % Plt Count 395 (160-400) X10*3/uL MPV 8.7 L (9.4-12.3) fL Immature Gran % (Auto) 0.4 (0.0-0.4) % Neut % (Auto) 43.1 L (45-73) % Lymph % (Auto) 47.3 H (20-40) % [place] % (Auto) 7.1 (2-11) % Eos % (Auto) 1.6 (0-4) % Baso % (Auto) 0.5 (0-2) % Lymph # (Auto) 4.7 (1.2-4.9) X10*3/uL [place] # (Auto) 0.7 (0.1-1.2) X10*3/uL Eos # (Auto) 0.2 (0.0-0.4) X10*3/uL Baso # (Auto) 0.1 (0.0-0.2) X10*3/uL Abs Immat Gran (auto) 0.04 H (0.00-0.03) X10*3/uL Absolute Neuts (auto) 4.3 (2.0-8.3) x10*3/uL Absolute Nucleated RBC 0.000 (0.0-0.012) X10*3/uL Nucleated RBC % (auto) 0.0 (0.0-0.2) /100WBC Sodium 140 (135-145) mmol/L Potassium 3.9 (3.3-5.1) mmol/L Chloride 107 (96-108) mmol/L Carbon Dioxide 24 (22-29) mmol/L Anion Gap 13 (12-20) BUN 9 (9-16) mg/dL Creatinine 0.78 (0.5-1.4) mg/dL Estim Creat Clear Calc 136.9 Estimated GFR > 60 Random Glucose 115 (60-115) mg/dL Calcium 9.1 (8.4-10.2) mg/dL Magnesium 2.0 (1.6-2.6) mg/dL Total Bilirubin 0.2 (0.0-1.0) mg/dL AST 13 (5-31) U/L ALT 11 (0-31) U/L Alkaline Phosphatase 74 (39-117) U/L Troponin I High Sens < 2.7 (<3.5-17.0) ng/L B-Natriuretic Peptide 33 (<100) pg/mL Total Protein 7.4 (6.5-8.0) g/dL Albumin 4.0 (3.5-5.0) g/dL Lipase 21 (8-78) U/L Influenza Type A (PCR) NEGATIVE (Negative) Influenza Type B (PCR) NEGATIVE (Negative) RSV RNA Qual (PCR) NEGATIVE (Negative) SARS-CoV-2 RNA (RT-PCR) NEGATIVE (Negative) Independent Interpretation I performed an independent interpretation of an: EKG Interpretation: Normal sinus rhythm heart rate 70 beats per minute LVH nonspecific STT wave changes no acute ischemia Discharge Plan Discharge Clinical Impression: Costalchondritis Patient Disposition: Home, Self-Care Instructions: Costochondritis (ED) Additional Instructions: Your chest pain is likely from inflammation of the cartilage Ibuprofen for pain Prescriptions: New ibuprofen 600 mg tablet 600 mg PO Q6H PRN (Reason: fever or pain) Qty: 30 0RF No Action cefuroxime axetil 500 mg tablet 500 mg PO BID 7 Days Qty: 14 0RF ondansetron 4 mg tablet,disintegrating 4 mg PO Q8H PRN (Reason: nausea and vomiting) Qty: 20 0RF Stand Alone Forms: Work/School Release Interventions: ED Discharge Assessment Last Done: 09/24/24 22:12 Discharge Date/Time: 09/24/24 22:13 Print Language: Maldivian
[2024-09-24 20:13] LABS: Basophils Absolute Auto 0.1 X10*3/uL (0.0-0.2); Basophils Percent Auto 0.5 % (0-2); Eosinophils Absolute Auto 0.2 X10*3/uL (0.0-0.4); Eosinophils Percent Auto 1.6 % (0-4); Hematocrit 35.7 % (37.0-47.0); Hemoglobin 11.7 g/dl (12.0-16.0); Imm Gran Abs Auto 0.04 X10*3/uL (0.00-0.03); Imm Gran Pct Auto 0.4 % (0.0-0.4); Lymphocytes Absolute Auto 4.7 X10*3/uL (1.2-4.9); Lymphocytes Percent Auto 47.3 % (20-40); MANUAL DIFF FLAG NO; Mean Corpuscular HGB Conc 32.8 g/dl (31.0-35.0); Mean Corpuscular Hemoglobin 29.6 pg (27.0-33.0); Mean Corpuscular Volume 90.4 fL (80.0-98.0); Mean Platelet Volume 8.7 fL (9.4-12.3); Monocytes Absolute Auto 0.7 X10*3/uL (0.1-1.2); Monocytes Percent Auto 7.1 % (2-11); Neutrophils Absolute Auto 4.3 x10*3/uL (2.0-8.3); Neutrophils Percent Auto 43.1 % (45-73); Platelet Count 395 X10*3/uL (160-400); Red Blood Count 3.95 X10*6/uL (4.20-5.50); Red Cell Distribution Width 13.2 % (11.0-16.0); White Blood Count 9.9 X10*3/uL (4.8-10.8)
[2024-09-24 20:28] LABS: Alanine Aminotransferase 11 U/L (0-31); Alkaline Phosphatase 74 U/L (39-117); Anion Gap 13 (12-20); Aspartate Amino Transferase 13 U/L (5-31); Bilirubin Total 0.2 mg/dL (0.0-1.0); Blood Urea Nitrogen 9 mg/dL (9-16); Calcium 9.1 mg/dL (8.4-10.2); Carbon Dioxide 24 mmol/L (22-29); Chloride 107 mmol/L (96-108); Creatinine Clr Calc Pharmacy 136.9; Estimated Glomerular Filt Rate > 60; Glucose Random 115 mg/dL (60-115); Lipase 21 U/L (8-78); Potassium 3.9 mmol/L (3.3-5.1); Sodium 140 mmol/L (135-145); Total Protein 7.4 g/dL (6.5-8.0)
[2024-09-24 20:33] LABS: B Type Natriuretic Peptide 33 pg/mL (<100)
[2024-09-24 20:37] LABS: Troponin-I High Sensitivity < 2.7 ng/L (<3.5-17.0)
[2024-09-24 20:50] LABS: Influenza A PCR NEGATIVE (Negative); Influenza B PCR NEGATIVE (Negative); Resp Syncy Virus RNA Qual PCR NEGATIVE (Negative); SARS COV2 PCR INHOUSE NEGATIVE (Negative)
--- NOTE | 2024-09-24 21:20 | PC.NURSE ---
pt a&ox4,respirations even and unlabored. pt reports sitting on couch watching tv when she developed sudden onset of chest pain with headache, nausea, and neck pain. pt reports the pain has not subsided at this time, but it has decreased. pt nsr on tele. vss.
[2024-09-24] MEDS: Ibuprofen 600 MG TABLET PO (22:08)
[2024-09-24 22:12] VITALS: BP 134/84; PULSE 64; RESP 16; TEMP 37; O2SAT 97
== END 2024-09-24 22:13 | disposition home or self-care (01) ==
PROVIDERS: Physician Assistant Medical; Emergency Provider Internal Medicine
DX: M94.0 Chondrocostal junction syndrome [Tietze] (principal); R07.89 Other chest pain; F41.9 Anxiety disorder, unspecified; Z03.818 Encounter for observation for suspected exposure to other biological agents ruled out
CPT/HCPCS: 0241U; 80053; 83690; 83735; 83880; 84484; 85025; 93005; 99283; 99285

== ENCOUNTER → 2024-09-24 19:14 | Outpatient (BNV) | payer OTHER, SELFPAY | PROVIDERS: Emergency Provider Internal Medicine; Visit Provider Internal Medicine Cardiovascular Disease | DX: R07.9 Chest pain, unspecified (principal); R94.31 Abnormal electrocardiogram [ECG] [EKG] | CPT/HCPCS: 93010 ==